=== PATIENT | male | born 1955 ===

== ENCOUNTER 2021-06-11 09:31 | Emergency (ER) | payer SELFPAY ==
[2021-06-11 09:40] VITALS: BP 154/96; PULSE 105; RESP 20; TEMP 38.3; O2SAT 97
--- NOTE | 2021-06-11 10:47 | PC.NURSE ---
TP STATES HE HAS TO GO BACK TO WORK. DISCUSSED RISKS OF LEAVING WITHUT SEEING PROVIDER. VERBALIZES UNDERSTANDING.
== END 2021-06-11 10:47 | disposition left against medical advice (07) ==
DX: R19.7 Diarrhea, unspecified (principal)
CPT/HCPCS: 99199